=== PATIENT | male | born 1965 | race Caucasian/White ===

== ENCOUNTER → 2016-09-22 | Outpatient (CLI) | payer BC ==
--- NOTE | 2016-09-22 08:58 | MR ---
EXAMINATION TYPE: MR cervical spine wo/w con DATE OF EXAM ORDERED: 09/22/2016 8:20 AM HISTORY: M50.20Herniated disc,M54.12 Radiculopathy Cervical. TECHNOLOGIST HISTORY AT TIME OF EXAM: Herniated disc, Radiculopathy Cervical IV CONTRAST: 20 of MultiHance COMPARISON: None. TECHNIQUE: Multiplanar, multiecho imaging of the cervical spine was obtained with and without the in travenous administration of 20 of MultiHance on a 1.5 del magnet. FINDINGS: There is some shotty cervical adenopathy. Prevertebral soft tissues are otherwise unremarka ble. Vertebral body height and alignment are maintained. Atlantoaxial relationships are normal. There is a normal craniocervical junction. Cord signal is normal. At C2-C3, no abnormalities demonstrated. At C3-C4, there is mild, bilateral intervertebral foraminal narrowing. There is a diffuse disc displa cement deforming the thecal sac without definite cord contact. The facet and uncovertebral joints mateusz ear unremarkable. At C4-C5, is mild disc space loss. There is a diffuse disc displacement with a superimposed central d isc herniation deforming the thecal sac with cord contact and mild compression. There is mild, bilate ral intervertebral foraminal narrowing. There is facet arthropathy. The uncovertebral joints appear u nremarkable. At C5-C6, there is mild, bilateral intervertebral foraminal narrowing. There is a tiny central disc p rotrusion deforming the thecal sac with cord contact and mild compression. There is mild facet arthro mitch. The uncovertebral joints are unremarkable. At C6-C7, there is disc space loss. There is a broad-based disc protrusion deforming the thecal sac w ith cord contact and mild compression. There is bilateral intervertebral foraminal narrowing. The fac ets are unremarkable. There is uncovertebral joint disease. At C7-T1, no definite abnormality is seen. IMPRESSION: 1. MULTILEVEL INTERVERTEBRAL FORAMINAL NARROWING. 2. CENTRAL DISC PROTRUSION, C4-5, DEFORMING THE THECAL SAC WITH CORD CONTACT AND MILD COMPRESSION. 3. TINY CENTRAL DISC PROTRUSION, C5-6 WITH MILD CORD CONTACT AND COMPRESSION. 4. BROAD-BASED DISC PROTRUSION, C6-7 DEFORMING THE THECAL SAC WITH CORD CONTACT AND COMPRESSION.
== END | disposition home or self-care (01) ==
LOC: RADMRIMAIN 07:21
PROVIDERS: ATTEND Psychiatry & Neurology Neurology
DX: M99.71 Connective tissue and disc stenosis of intervertebral foramina of cervical region (principal); M50.122 Cervical disc disorder at C5-C6 level with radiculopathy; G95.29 Other cord compression; M50.123 Cervical disc disorder at C6-C7 level with radiculopathy
CPT/HCPCS: 72156; A9577